=== PATIENT | female | born 1955 | race Caucasian/White ===

== ENCOUNTER 2017-06-01 09:37 | Emergency (ER) | payer OTHER ==
[2017-06-01 10:04] VITALS: BP 146/85
--- NOTE | 2017-06-01 10:12 | UC ---
Complaint Female HPI - HPI Summary HPI Summary: Pt presents with c/o urinary frequency, urgency and hematuria X 1 day. Pt recently travelled by plane from [place] to [place]. Pt has history of previous UTI's and FMH of kidney stones. - History Of Current Complaint Chief Complaint: UCGU Stated Complaint: URINARY Time Seen by Provider: 06/01/17 09:59 Hx Obtained From: Patient ?: No Onset/Duration: Sudden Onset, Lasting Days - 1, Still Present Timing: Constant - feelings of urgency with urination Severity Initially: Mild Severity Currently: Mild Character: Dull, Burning Aggravating Factor(s): Urination Alleviating Factor(s): Nothing Associated Signs And Symptoms: Positive: Negative - Risk Factors Ectopic Risk Factor: Negative Ovarian Torsion Risk Factor: Negative - Allergies/Home Medications Allergies/Adverse Reactions: Allergies Allergy/AdvReac Type Severity Reaction Status Date / Time Codeine Allergy Hives Verified 06/01/17 09:59 Sulfa Antibiotics Allergy Hives Verified 06/01/17 09:59 PMH/Surg Hx/FS Hx/Imm Hx Previously Healthy: Yes - Surgical History Surgical History: None - Family History Known Family History: Positive: Other - positive FMH for kidney stones - Social History Occupation: Retired Lives: With Family Alcohol Use: Occasionally Substance Use Type: None Smoking Status (MU): Current Every Day Smoker Type: Cigarettes Amount Used/How Often: <1 PPD Have You Smoked in the Last Year: Yes Household Exposure Type: Cigarettes - Immunization History Most Recent Influenza Vaccination: NONE 2015 Most Recent Tetanus Shot: UNKNOWN Most Recent Pneumonia Vaccination: NONE Review of Systems Constitutional: Negative Skin: Negative Eyes: Negative ENT: Negative Respiratory: Negative Cardiovascular: Negative Gastrointestinal: Abdominal Pain Genitourinary: Dysuria, Hematuria, Frequency, Urgency Motor: Negative Neurovascular: Negative Musculoskeletal: Negative Neurological: Negative Psychological: Negative All Other Systems Reviewed And Are Negative: Yes Physical Exam Triage Information Reviewed: Yes Appearance: Well-Appearing Vital Signs: Initial Vital Signs Temp 98.7 F 06/01/17 09:59 Pulse 75 06/01/17 09:59 Resp 18 06/01/17 09:59 BP 146/85 06/01/17 09:59 Pulse Ox 98 06/01/17 09:59 Vital Signs Reviewed: Yes Eye Exam: Normal ENT Exam: Normal Dental Exam: Normal Neck exam: Normal Respiratory Exam: Normal Cardiovascular Exam: Normal Abdominal Exam: Normal Abdomen Description: Positive: Nontender Musculoskeletal Exam: Normal Neurological Exam: Normal Psychological Exam: Normal Skin Exam: Normal Complaint Female Dx - Course Course Of Treatment: I dicsussed with the pt the need to follow up with her pCP regarding her c/o of hematuria. Pt verbalized understanding and agreed to plan of care. - Differential Dx/Diagnosis Differential Diagnosis/HQI/PQRI: Urinary Tract Infection, Other - hematuria Provider Diagnoses: UTI. hematuria Discharge - Discharge Plan Condition: Stable Disposition: HOME Prescriptions: Cephalexin CAP* [Keflex 500 CAP*] 500 mg PO Q12H #10 cap Patient Education Materials: Urinary Tract Infection in Women (ED), Hematuria ( ED) Referrals: [facility] [Primary Care Provider] - Additional Instructions: Please follow up with a PCP as soon as possible. We have provided a list of local PCP providers as reference for you.
== END 2017-06-01 10:36 | disposition home or self-care (01) ==
LOC: UCCORT 09:37
DX: N39.0 Urinary tract infection, site not specified (principal); R31.9 Hematuria, unspecified; F17.210 Nicotine dependence, cigarettes, uncomplicated; Z88.5 Allergy status to narcotic agent; Z88.2 Allergy status to sulfonamides
CPT/HCPCS: 81003; 87077; 87086; 87186; 99212; G0463

== ENCOUNTER 2018-02-23 10:36 | Emergency (ER) | payer OTHER ==
[2018-02-23 10:57] VITALS: BP 144/86
[2018-02-23] MEDS ORDERED: Lidocaine 1% MPF* 2 ML VIAL INJ ONE (11:00)
[2018-02-23] MEDS ORDERED: Acetaminophen TAB* 325 MG PO ONE (11:47)
[2018-02-23] MEDS ORDERED: Ibuprofen ADULT LIQ* 600 MG/30 ML UDC PO ONE (11:47)
--- NOTE | 2018-02-23 12:14 | UC ---
UC General HPI - HPI Summary HPI Summary: pt notes a red spot on L forehead for about 2 days. this am, roused with swelling and tenderness. no fever or hx MRSA - History of Current Complaint Stated Complaint: SKIN COMPLAINT Time Seen by Provider: 02/23/18 10:45 Hx Obtained From: Patient Onset/Duration: Gradual Onset Timing: Constant Associated Signs & Symptoms: Positive: Headache - "tension from pressure of swelling". Negative: Fever - Allergy/Home Medications Allergies/Adverse Reactions: Allergies Allergy/AdvReac Type Severity Reaction Status Date / Time codeine Allergy Unknown Hives Verified 02/23/18 10:49 Sulfa (Sulfonamide Allergy Unknown Hives Verified 02/23/18 10:49 Antibiotics) PMH/Surg Hx/FS Hx/Imm Hx Previously Healthy: Yes - Surgical History Surgical History: None - Family History Known Family History: Positive: Other - positive FMH for kidney stones - Social History Occupation: Unemployed Lives: With Family Alcohol Use: Occasionally Substance Use Type: None Smoking Status (MU): Current Every Day Smoker Type: Cigarettes Amount Used/How Often: <1 PPD Have You Smoked in the Last Year: Yes Household Exposure Type: Cigarettes - Immunization History Most Recent Influenza Vaccination: NONE 2015 Most Recent Tetanus Shot: UNKNOWN Most Recent Pneumonia Vaccination: NONE Vaccination Up to Date: Yes Review of Systems Constitutional: Negative Skin: Rash - L forehead with swelling Eyes: Negative ENT: Negative Respiratory: Negative Cardiovascular: Negative Gastrointestinal: Negative Genitourinary: Negative Motor: Negative Neurovascular: Negative Musculoskeletal: Negative Neurological: Headache - from swelling to forehead Psychological: Negative Is Patient Immunocompromised?: No All Other Systems Reviewed And Are Negative: Yes Physical Exam Triage Information Reviewed: Yes Appearance: Well-Appearing Vital Signs Reviewed: Yes Eyes: Positive: Conjunctiva Clear ENT: Positive: Normal ENT inspection Neck: Positive: Supple, Nontender, No Lymphadenopathy Respiratory: Positive: Lungs clear, Decreased breath sounds Abdomen Description: Positive: Nontender, No Organomegaly, Soft Bowel Sounds: Positive: Present Musculoskeletal: Positive: ROM Intact Neurological: Positive: Alert Psychological: Positive: Age Appropriate Behavior Skin Exam: Normal, Other - 2cm area of erythema, mild swelling and tenderness. center is ? fluctuant. mild swelling above L eye into bridge of nose. No auricular adenopathy Course/Dx - Course Course Of Treatment: Procedure: time out. prep betadine. local with 1% lidocaine , 0.4ml. 18g used to aspirate-puss obtained/site sprayed. Tip of #11 used to make superficial stab. small amount of puss drained/cultured. gentle blunt exploration. site with less swelling post but still mild surrounding erythema. covered with bandage. sterile technique used for procedure. pt tolerated well. during procedure, this provider was sprayed in the R eye with patti puss/blood between my mask and glasses. pt agrees to HIV and hepatitis testing. she denies known hx of either. 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 - Differential Dx - Multi-Symptom Provider Diagnoses: I & D abscess L forehead Discharge - Sign-Out/Discharge Documenting (check all that apply): Discharge/Admit/Transfer - Discharge Plan Condition: Stable Disposition: HOME Prescriptions: Cephalexin CAP* [Keflex CAP*] 500 mg PO TID #21 cap Patient Education Materials: Abscess (ED) Referrals: Glenn Alcazar MD [Medical Doctor] - 2 Days [facility] [facility] REFERR[facility] [Outside] - Billing Disposition and Condition Condition: STABLE Disposition: HOME
== END 2018-02-23 12:22 | disposition home or self-care (01) ==
LOC: UCCORT 10:36
DX: L02.01 Cutaneous abscess of face (principal); F17.210 Nicotine dependence, cigarettes, uncomplicated; Z88.5 Allergy status to narcotic agent; Z88.2 Allergy status to sulfonamides
CPT/HCPCS: 10060; 36415; 86703; 86706; 86803; 87070; 87077; 87186; 87205; 87340; 87640; 87641; 99212; A9270-GY; G0463